=== PATIENT | female | born 1940 | race Two or more races ===

== ENCOUNTER → 2018-06-22 | Outpatient (CLI) | payer BC ==
[~2018-06-22] MED LIST: ACYC800T99 PO; ANXIETY MED; AUG500 PO; CHOL100058 PO; CYA1000 PO; DIPH25CA54 PO; FLU180SY11 IM; LEVO75TA73 PO; LEVO88TA42 PO; LEVO88TA45 PO; LISI5TAB25 PO; MIRT-22 PO; NOR5/325 PO; OMEP-218 PO; OMEP20CA68 PO; PARO-46 PO; PARO10TA78 PO; RANI-366 PO; SERT-181 PO
[2018-06-22 11:43] LABS: PLATELET COUNT, AUTOMATED 271 K/uL (150-450)
== END ==
LOC: LAB 11:22
PROVIDERS: ATTEND Family Medicine
DX: E03.9 Hypothyroidism, unspecified (principal); I10 Essential (primary) hypertension
CPT/HCPCS: 36415; 82040; 82247; 82310; 82374; 82435; 82565; 82947; 84075; 84132; 84155; 84295; 84443; 84450; 84460; 84520; 85025

== ENCOUNTER → 2018-07-13 | Outpatient (CLI) | payer BC | LOC: LAB 08:05 | PROVIDERS: ATTEND Family Medicine | DX: I10 Essential (primary) hypertension (principal) | CPT/HCPCS: 36415; 82310; 82374; 82435; 82565; 82947; 84132; 84295; 84520 ==

== ENCOUNTER → 2018-08-13 | Outpatient (CLI) | payer BC | LOC: LAB 12:12 | PROVIDERS: ATTEND Family Medicine | DX: E03.9 Hypothyroidism, unspecified (principal) | CPT/HCPCS: 36415; 84443 ==